=== PATIENT | female | born 1965 | race Caucasian/White ===

== ENCOUNTER → 2017-05-28 | Outpatient (CLI) | payer OTHER ==
[~2017-05-28] MED LIST: AMBIEN 10MG10 MG PO; DIOVAN 160MG160 MG PO; DIOVAN HCT; KLOR-CON 1010 MEQ PO; LEVOTHYROXINE PO; MAG-OX 400400 MG/TAB PO; SEROQUEL50 MG PO; SYNTHROID PO; SYNTHROID0.075 MG/T PO; SYNTHROID0.1 MG/TAB PO
== END ==
LOC: MC.RAD 13:11
DX: Z12.31 Encounter for screening mammogram for malignant neoplasm of breast (principal)

== ENCOUNTER → 2018-08-13 | Outpatient (CLI) | payer OTHER | LOC: MC.RAD 09:35 | DX: Z12.31 Encounter for screening mammogram for malignant neoplasm of breast (principal) ==

== ENCOUNTER → 2019-11-11 | Outpatient (CLI) | payer OTHER | LOC: MC.RAD 07:30 | DX: Z12.31 Encounter for screening mammogram for malignant neoplasm of breast (principal) ==

== ENCOUNTER → 2021-01-21 | Outpatient (CLI) | payer OTHER | LOC: MC.RAD 01-11 07:45 | DX: Z12.31 Encounter for screening mammogram for malignant neoplasm of breast (principal) ==

== ENCOUNTER → 2022-06-24 | Outpatient (CLI) | payer OTHER | LOC: MC.RAD 09:00 | DX: Z12.31 Encounter for screening mammogram for malignant neoplasm of breast (principal) ==

== ENCOUNTER → 2024-01-19 | Outpatient (CLI) | payer OTHER | LOC: COL.RAD 12:57 | DX: Z12.2 Encounter for screening for malignant neoplasm of respiratory organs (principal); Z87.891 Personal history of nicotine dependence ==